=== PATIENT | female | born 1965 | race Caucasian/White ===

== ENCOUNTER 2018-05-22 08:45 | Inpatient (IN) ==
[2018-05-22] MEDS ORDERED: ONDANSETRON 4 MG/2 ML VIAL IV STA (09:54)
[2018-05-22] MEDS ORDERED: KETOROLAC 30 MG/1 ML VIAL IV STA (09:54)
[2018-05-22] MEDS ORDERED: SODIUM CHLORIDE 0.9% 1,000 ML IV STA (09:54)
[2018-05-22 10:30] LABS: Basophils # 0.1 10*3/uL (0.0-0.2); Basophils % 0.6 % (0.0-0.8); Eosinophils # 0.3 10*3/uL (0.0-0.87); Eosinophils % 4.2 % (0.00-10.9); Hematocrit 38.2 VOL% (35.7-47.0); Hemoglobin 12.7 GM/DL (12.0-16.0); Immature Granulocytes % 0.3 %; Immature Granulocytes Absolute 0.02 #; Lymphocytes # 3.2 10*3/uL (1.4-4.0); Lymphocytes % 40.2 % (21.3-54.2); Mean Corpuscular HGB Conc 33.2 GM/DL (32-36); Mean Corpuscular Hemoglobin 30 PG (27-34); Mean Corpuscular Volume 90.5 FL (87-102); Mean Platelet Volume 11.4 FL (9.6-12.0); Monocytes # 0.5 10*3/uL (0.11-0.8); Monocytes % 6.9 % (1.7-12.7); Neutrophils # 3.8 10*3/uL (1.4-7.4); Neutrophils % 47.8 % (38.7-73.9); Platelet Count 259 T/CUMM (130-400); Red Blood Count 4.22 MC/CUMM (3.8-5.5); Red Cell Distribution Width 12.5 % (9.3-17.3); White Blood Count 7.9 T/CUMM (4-12)
[2018-05-22 10:38] LABS: Alanine Aminotransferase 22 U/L (13-56); Albumin 3.1 G/DL (3.4-5.0); Alkaline Phosphatase 108 U/L (45-117); Amylase 41 U/L (25-115); Aspartate Amino Transferase 16 U/L (0-37); Bilirubin,Total < 0.39 MG/DL (0.2-1.0); Blood Urea Nitrogen 16 MG/DL (7-18); Calcium 8.7 MG/DL (8.5-10.1); Glucose 122 MG/DL (74-106); Potassium 2.9 MMOL/L (3.5-5.1); Sodium 143 MMOL/L (136-145)
[2018-05-22 10:57] LABS: Apearance,Urine CLEAR (Clear); Bacteria,Urine Occasional /HPF (Few); Bilirubin,Urine Negative (Negative); Blood, Urine Negative (Negative); Glucose,Urine (UA) Negative (Negative); Ketones,Urine Negative (Negative); Nitrite,Urine Negative (Negative); Protein,Urine Negative; RBC,Urine <1 /HPF (0-4); Squamous Epithelial Cell,Urine Occasional /HPF (0-10); Urine Color Straw (Yellow); Urine Specific Gravity 1.004 (1.001-1.035); Urine Urobilinogen < 2.0 EU/DL (0.2-1.0); WBC,Urine 2 /HPF (0-6)
[2018-05-22] MEDS ORDERED: PROMETHAZINE 25 MG TABLET PO PRN (12:27)
[2018-05-22] MEDS ORDERED: ONDANSETRON 4 MG/2 ML VIAL IV PRN (12:27)
[2018-05-22] MEDS ORDERED: ENOXAPARIN 80 MG/0.8 ML SYRINGE SUBCUT STA (12:27)
[2018-05-22] MEDS: POTASSIUM CHLORIDE RIDER 10 MEQ in PREMIX 1 EACH IV SCH ×2 (13:25→16:11)
[2018-05-22] MEDS ORDERED: MAGNESIUM SULF RIDER 2 GM in PREMIX 1 EACH IV PRN (14:08)
[2018-05-22 14:48] LABS: Troponin I 1.27 NG/ML (0.00-0.045)
[2018-05-22] MEDS: MORPHINE 4 MG/1 ML VIAL IV PRN ×2 (16:12→19:55)
[2018-05-22] MEDS ORDERED: TICAGRELOR 90 MG TABLET PO ONE (16:34)
[2018-05-22] MEDS: NITROGLYCERIN 2% OINT 1 INCH/GM PACK TOP SCH (18:26)
[2018-05-22 18:44] LABS: CKMB % 11.1 %
[2018-05-22 18:48] LABS: Troponin I 2.35 NG/ML (0.00-0.045)
[2018-05-22] MEDS ORDERED: ALUM/MAG/SIMETH/LIDO VISC 1:1 30 ML BOTTLE PO ONE (19:00)
[2018-05-22] MEDS: AMITRIPTYLINE 50 MG TABLET PO SCH (20:52)
[2018-05-22] MEDS: DOCUSATE SODIUM 100 MG CAPSULE PO SCH (20:52)
[2018-05-22] MEDS: TEMAZEPAM 15 MG CAPSULE PO SCH (20:52)
[2018-05-22 22:37] LABS: CKMB % 11.4 %
[2018-05-22 22:40] LABS: Troponin I 4.57 NG/ML (0.00-0.045)
[2018-05-23] MEDS: NITROGLYCERIN 2% OINT 1 INCH/GM PACK TOP SCH ×3 (01:53→12:16)
[2018-05-23] MEDS: MORPHINE 4 MG/1 ML VIAL IV PRN (04:09)
[2018-05-23 05:08] LABS: Basophils # 0.1 10*3/uL (0.0-0.2); Basophils % 0.9 % (0.0-0.8); Eosinophils # 0.3 10*3/uL (0.0-0.87); Eosinophils % 4.6 % (0.00-10.9); Hematocrit 35.8 VOL% (35.7-47.0); Hemoglobin 11.5 GM/DL (12.0-16.0); Immature Granulocytes % 0.3 %; Immature Granulocytes Absolute 0.02 #; Lymphocytes % 34.4 % (21.3-54.2); Mean Corpuscular HGB Conc 32.1 GM/DL (32-36); Mean Corpuscular Hemoglobin 29 PG (27-34); Mean Corpuscular Volume 91.3 FL (87-102); Mean Platelet Volume 11.5 FL (9.6-12.0); Monocytes # 0.5 10*3/uL (0.11-0.8); Monocytes % 8.3 % (1.7-12.7); Neutrophils % 51.5 % (38.7-73.9); Platelet Count 241 T/CUMM (130-400); Red Blood Count 3.92 MC/CUMM (3.8-5.5); Red Cell Distribution Width 12.7 % (9.3-17.3); White Blood Count 5.9 T/CUMM (4-12)
[2018-05-23 05:21] LABS: PT Patient Result 10.2 SECS
[2018-05-23 05:41] LABS: Calcium 8.2 MG/DL (8.5-10.1); Osmolality,Calculated 285.8 MOS/KG (273-304); Potassium 3.4 MMOL/L (3.5-5.1)
[2018-05-23 05:42] LABS: Risk Ratio 3.07; VLDL CHOLESTEROL 23.6 MG/DL
[2018-05-23 05:47] LABS: Troponin I 6.88 NG/ML (0.00-0.045)
[2018-05-23] MEDS: POTASSIUM CHLORIDE RIDER 10 MEQ in PREMIX 1 EACH IV PRN ×2 (06:12→08:12)
[2018-05-23] MEDS ORDERED: DIAZEPAM 5 MG TABLET PO ONE (06:30)
[2018-05-23] MEDS ORDERED: diphenhydrAMINE CAP 25 MG CAPSULE PO ONE (06:30)
[2018-05-23] MEDS ORDERED: HEPARIN/NACL 0.9% 2 UNITS/ML 1,000 ML IV ONE (08:07)
[2018-05-23] MEDS: ASPIRIN EC 325 MG TABLET PO SCH (08:10)
[2018-05-23] MEDS: TICAGRELOR 90 MG TABLET PO SCH ×2 (08:11→21:54)
[2018-05-23] MEDS: PANTOPRAZOLE 40 MG TABLET PO SCH (08:12)
[2018-05-23] MEDS: buPROPion SR 150 MG TABLET PO SCH (08:12)
[2018-05-23] MEDS: FLUoxetine 20 MG CAPSULE PO SCH (08:12)
[2018-05-23] MEDS: PRAVASTATIN 20 MG TABLET PO SCH (08:12)
[2018-05-23] MEDS: TOPIRAMATE 100 MG TABLET PO SCH (08:12)
[2018-05-23] MEDS: SODIUM CHLORIDE 0.45% 1,000 ML IV SCH ×2 (08:13→17:00)
[2018-05-23] MEDS: DOCUSATE SODIUM 100 MG CAPSULE PO SCH ×2 (08:17→21:54)
[2018-05-23] MEDS ORDERED: MIDAZOLAM 2 MG/2 ML VIAL ONE (08:31)
[2018-05-23] MEDS ORDERED: LIDOCAINE 1%/EPI INJ 20 ML VIAL ONE (08:31)
[2018-05-23] MEDS ORDERED: fentaNYL 100 MCG/2 ML VIAL ONE (08:31)
[2018-05-23] MEDS ORDERED: NIFEdipine 10 MG CAPSULE PO ONE (08:54)
[2018-05-23] MEDS ORDERED: PROPRANOLOL 40 MG TABLET PO SCH (09:00)
[2018-05-23] MEDS ORDERED: MELOXICAM 7.5 MG TABLET PO SCH (09:00)
[2018-05-23] MEDS: ACETAMINOPHEN 325 MG TABLET PO PRN (11:38)
[2018-05-23] MEDS ORDERED: ISOSORBIDE MONONITRATE 30 MG TABLET PO SCH (16:00)
[2018-05-23 16:50] LABS: CKMB % 8.2 %
[2018-05-23 16:51] LABS: Troponin I 5.4 NG/ML (0.00-0.045)
[2018-05-23] MEDS ORDERED: POTASSIUM CHLORIDE 20 MEQ TABLET PO ONE (19:41)
[2018-05-23] MEDS: TEMAZEPAM 15 MG CAPSULE PO SCH (21:54)
[2018-05-23] MEDS: AMITRIPTYLINE 50 MG TABLET PO SCH (21:54)
[2018-05-24 04:43] LABS: Basophils % 0.4 % (0.0-0.8); Eosinophils # 0.3 10*3/uL (0.0-0.87); Eosinophils % 4.3 % (0.00-10.9); Hematocrit 35.4 VOL% (35.7-47.0); Hemoglobin 11.4 GM/DL (12.0-16.0); Immature Granulocytes % 0.1 %; Immature Granulocytes Absolute 0.01 #; Lymphocytes # 2.6 10*3/uL (1.4-4.0); Lymphocytes % 38.5 % (21.3-54.2); Mean Corpuscular HGB Conc 32.2 GM/DL (32-36); Mean Corpuscular Hemoglobin 29 PG (27-34); Mean Corpuscular Volume 90.8 FL (87-102); Mean Platelet Volume 11.7 FL (9.6-12.0); Monocytes # 0.6 10*3/uL (0.11-0.8); Monocytes % 8.8 % (1.7-12.7); Neutrophils # 3.2 10*3/uL (1.4-7.4); Neutrophils % 47.9 % (38.7-73.9); Platelet Count 254 T/CUMM (130-400); Red Cell Distribution Width 12.8 % (9.3-17.3); White Blood Count 6.7 T/CUMM (4-12)
[2018-05-24 05:06] LABS: Calcium 8.7 MG/DL (8.5-10.1)
[2018-05-24 05:08] LABS: CKMB % 6.3 %
[2018-05-24 05:09] LABS: Troponin I 4.04 NG/ML (0.00-0.045)
[2018-05-24 07:07] LABS: CKMB % 7.5 %; Troponin I 3.46 NG/ML (0.00-0.045)
[2018-05-24] MEDS ORDERED: MEPERIDINE 25 MG/1 ML VIAL IV ONE (10:08)
[2018-05-24] MEDS ORDERED: PROMETHAZINE INJ 12.5 MG in SODIUM CHLORIDE 0.9% 50 ML IV ONE (10:08)
[2018-05-24] MEDS: FLUoxetine 20 MG CAPSULE PO SCH (10:20)
[2018-05-24] MEDS: TICAGRELOR 90 MG TABLET PO SCH ×2 (10:20→21:26)
[2018-05-24] MEDS: PROPRANOLOL 20 MG TABLET PO SCH (10:20)
[2018-05-24] MEDS: ASPIRIN EC 325 MG TABLET PO SCH (10:20)
[2018-05-24] MEDS: PRAVASTATIN 20 MG TABLET PO SCH (10:20)
[2018-05-24] MEDS: PANTOPRAZOLE 40 MG TABLET PO SCH (10:20)
[2018-05-24] MEDS: TOPIRAMATE 100 MG TABLET PO SCH (10:20)
[2018-05-24] MEDS: buPROPion SR 150 MG TABLET PO SCH (10:20)
[2018-05-24] MEDS: DOCUSATE SODIUM 100 MG CAPSULE PO SCH ×2 (10:20→21:26)
[2018-05-24] MEDS: ACETAMINOPHEN 325 MG TABLET PO PRN (17:01)
[2018-05-24] MEDS ORDERED: MAGNESIUM HYDROXIDE SUSP 30 ML UDCUP PO ONE (17:30)
[2018-05-24] MEDS ORDERED: MAGNESIUM HYDROXIDE SUSP 30 ML UDCUP PO PRN (17:30)
[2018-05-24] MEDS: SODIUM CHLORIDE 0.45% 1,000 ML IV SCH (18:30)
[2018-05-24] MEDS: metroNIDAZOLE INJ 250 MG in IV BAG 1 EACH IV SCH (19:01)
[2018-05-24] MEDS: AMITRIPTYLINE 50 MG TABLET PO SCH (21:26)
[2018-05-24] MEDS: TEMAZEPAM 15 MG CAPSULE PO SCH (21:26)
[2018-05-25] MEDS: metroNIDAZOLE INJ 250 MG in IV BAG 1 EACH IV SCH ×3 (02:30→18:32)
[2018-05-25 04:44] LABS: Basophils % 0.7 % (0.0-0.8); Eosinophils # 0.3 10*3/uL (0.0-0.87); Eosinophils % 5.4 % (0.00-10.9); Hemoglobin 11.1 GM/DL (12.0-16.0); Immature Granulocytes % 0.2 %; Immature Granulocytes Absolute 0.01 #; Lymphocytes # 2.2 10*3/uL (1.4-4.0); Lymphocytes % 36.2 % (21.3-54.2); Mean Corpuscular HGB Conc 31.7 GM/DL (32-36); Mean Corpuscular Hemoglobin 29 PG (27-34); Mean Corpuscular Volume 92.6 FL (87-102); Mean Platelet Volume 11.7 FL (9.6-12.0); Monocytes # 0.4 10*3/uL (0.11-0.8); Neutrophils % 50.5 % (38.7-73.9); Platelet Count 233 T/CUMM (130-400); Red Blood Count 3.78 MC/CUMM (3.8-5.5); Red Cell Distribution Width 12.9 % (9.3-17.3)
[2018-05-25 05:25] LABS: Albumin 2.6 G/DL (3.4-5.0); Bilirubin,Total 0.4 MG/DL (0.2-1.0); Calcium 8.2 MG/DL (8.5-10.1); Osmolality,Calculated 288.8 MOS/KG (273-304); Potassium 3.7 MMOL/L (3.5-5.1); Total Protein 6.1 G/DL (6.4-8.3)
[2018-05-25] MEDS: SODIUM CHLORIDE 0.45% 1,000 ML IV SCH ×2 (09:15→21:10)
[2018-05-25] MEDS: buPROPion SR 150 MG TABLET PO SCH (09:31)
[2018-05-25] MEDS: DOCUSATE SODIUM 100 MG CAPSULE PO SCH (09:31)
[2018-05-25] MEDS: ASPIRIN EC 325 MG TABLET PO SCH (09:32)
[2018-05-25] MEDS: PANTOPRAZOLE 40 MG TABLET PO SCH (09:32)
[2018-05-25] MEDS: PRAVASTATIN 20 MG TABLET PO SCH (09:32)
[2018-05-25] MEDS: TOPIRAMATE 100 MG TABLET PO SCH (09:32)
[2018-05-25] MEDS: PROPRANOLOL 20 MG TABLET PO SCH (09:32)
[2018-05-25] MEDS: TICAGRELOR 90 MG TABLET PO SCH ×2 (09:32→21:06)
[2018-05-25] MEDS: FLUoxetine 20 MG CAPSULE PO SCH (09:32)
[2018-05-25] MEDS ORDERED: BISACODYL 5 MG TABLET PO PRN (14:30)
[2018-05-25] MEDS: traMADol 50 MG TABLET PO PRN ×2 (14:47→20:25)
[2018-05-25] MEDS: TEMAZEPAM 15 MG CAPSULE PO SCH (21:06)
[2018-05-25] MEDS: AMITRIPTYLINE 50 MG TABLET PO SCH (21:06)
[2018-05-26 04:15] LABS: Basophils # 0.1 10*3/uL (0.0-0.2); Basophils % 0.7 % (0.0-0.8); Eosinophils # 0.4 10*3/uL (0.0-0.87); Eosinophils % 5.7 % (0.00-10.9); Hemoglobin 12.5 GM/DL (12.0-16.0); Immature Granulocytes % 0.3 %; Immature Granulocytes Absolute 0.02 #; Lymphocytes # 2.2 10*3/uL (1.4-4.0); Lymphocytes % 32.5 % (21.3-54.2); Mean Corpuscular HGB Conc 32.1 GM/DL (32-36); Mean Corpuscular Hemoglobin 30 PG (27-34); Mean Corpuscular Volume 93.1 FL (87-102); Mean Platelet Volume 11.8 FL (9.6-12.0); Monocytes # 0.5 10*3/uL (0.11-0.8); Monocytes % 7.4 % (1.7-12.7); Neutrophils # 3.7 10*3/uL (1.4-7.4); Neutrophils % 53.4 % (38.7-73.9); Platelet Count 273 T/CUMM (130-400); Red Blood Count 4.19 MC/CUMM (3.8-5.5); Red Cell Distribution Width 12.9 % (9.3-17.3); White Blood Count 6.9 T/CUMM (4-12)
[2018-05-26 04:40] LABS: Blood Urea Nitrogen 14 MG/DL (7-18); Calcium 8.6 MG/DL (8.5-10.1); Glucose 108 MG/DL (74-106); Osmolality,Calculated 287.8 MOS/KG (273-304); Potassium 3.5 MMOL/L (3.5-5.1); Sodium 144 MMOL/L (136-145)
[2018-05-26] MEDS: traMADol 50 MG TABLET PO PRN ×2 (07:19→13:07)
[2018-05-26] MEDS: PANTOPRAZOLE 40 MG TABLET PO SCH (08:45)
[2018-05-26] MEDS: FLUoxetine 20 MG CAPSULE PO SCH (08:45)
[2018-05-26] MEDS: TICAGRELOR 90 MG TABLET PO SCH (08:46)
[2018-05-26] MEDS: ASPIRIN EC 325 MG TABLET PO SCH (08:47)
[2018-05-26] MEDS: buPROPion SR 150 MG TABLET PO SCH (08:47)
[2018-05-26] MEDS: PROPRANOLOL 20 MG TABLET PO SCH (08:47)
[2018-05-26] MEDS: PRAVASTATIN 20 MG TABLET PO SCH (08:47)
[2018-05-26] MEDS: TOPIRAMATE 100 MG TABLET PO SCH (08:47)
[2018-05-26] MEDS ORDERED: POLYETHYLENE GLYCOL POWDER 17 GM PACK PO SCH (09:00)
[2018-05-26] MEDS ORDERED: POTASSIUM CHLORIDE 20 MEQ TABLET PO ONE (13:44)
[2018-05-26] MEDS: SODIUM CHLORIDE 0.45% 1,000 ML IV SCH (14:22)
[2018-05-26 17:31] VITALS: BP 109/55
== END 2018-05-26 18:00 | disposition home or self-care (01) | DRG 282 ==
LOC: N.ED 08:45 → N.EDINP 12:27 → N.TELES 13:54
PROVIDERS: ADMIT Internal Medicine; ATTEND Internal Medicine
PROC: CLCCHCL (ICD-10-PCS; 2018-05-23 09:15)

== ENCOUNTER 2018-07-31 23:08 | Inpatient (IN) ==
[2018-08-01] MEDS ORDERED: SODIUM CHLORIDE 0.9% 1,000 ML IV STA (00:45)
[2018-08-01 01:03] LABS: Basophils # 0.1 10*3/uL (0.0-0.2); Basophils % 0.5 % (0.0-0.8); Eosinophils # 0.4 10*3/uL (0.0-0.87); Eosinophils % 4.1 % (0.00-10.9); Hematocrit 38.9 VOL% (35.7-47.0); Hemoglobin 12.3 GM/DL (12.0-16.0); Immature Granulocytes % 0.4 %; Immature Granulocytes Absolute 0.04 #; Lymphocytes # 2.9 10*3/uL (1.4-4.0); Lymphocytes % 32.1 % (21.3-54.2); Mean Corpuscular HGB Conc 31.6 GM/DL (32-36); Mean Corpuscular Hemoglobin 29 PG (27-34); Mean Corpuscular Volume 91.1 FL (87-102); Mean Platelet Volume 11.9 FL (9.6-12.0); Monocytes # 0.9 10*3/uL (0.11-0.8); Monocytes % 9.7 % (1.7-12.7); Neutrophils # 4.9 10*3/uL (1.4-7.4); Neutrophils % 53.2 % (38.7-73.9); Platelet Count 273 T/CUMM (130-400); Red Blood Count 4.27 MC/CUMM (3.8-5.5); Red Cell Distribution Width 13.3 % (9.3-17.3); White Blood Count 9.1 T/CUMM (4-12)
[2018-08-01] MEDS ORDERED: LEVOFLOXACIN INJ 750 MG in PREMIX 1 EACH IV STA (01:15)
[2018-08-01] MEDS ORDERED: ALBUTEROL 1.25 MG/3 ML NEB RESP TX STA (01:16)
[2018-08-01] MEDS ORDERED: ACETAMINOPHEN 500 MG TABLET PO STA (01:16)
[2018-08-01 01:34] LABS: Alanine Aminotransferase 30 U/L (13-56); Albumin 2.8 G/DL (3.4-5.0); Alkaline Phosphatase 121 U/L (45-117); Aspartate Amino Transferase 16 U/L (0-37); Bilirubin,Total < 0.39 MG/DL (0.2-1.0); Blood Urea Nitrogen 12 MG/DL (7-18); Calcium 8.2 MG/DL (8.5-10.1); Glucose 104 MG/DL (74-106); Osmolality,Calculated 289.6 MOS/KG (273-304); Potassium 3.5 MMOL/L (3.5-5.1); Sodium 146 MMOL/L (136-145)
[2018-08-01] MEDS: ACETAMINOPHEN 325 MG TABLET PO PRN ×2 (10:19→21:23)
[2018-08-01] MEDS: DOCUSATE SODIUM 100 MG CAPSULE PO SCH ×2 (10:20→21:22)
[2018-08-01] MEDS: PANTOPRAZOLE 40 MG TABLET PO SCH (10:20)
[2018-08-01] MEDS ORDERED: POTASSIUM CHLORIDE 20 MEQ TABLET PO ONE (13:09)
[2018-08-01] MEDS ORDERED: KETOROLAC 15 MG/1 ML VIAL IV ONE (13:09)
[2018-08-01] MEDS ORDERED: TICAGRELOR 90 MG TABLET PO SCH (13:30)
[2018-08-01] MEDS: SODIUM CHLORIDE 0.45% 1,000 ML IV SCH (15:06)
[2018-08-01] MEDS: methylPREDNISolone SOD SUC 40 MG/1 ML VIAL IV SCH (15:07)
[2018-08-01] MEDS: PROPRANOLOL 40 MG TABLET PO SCH ×2 (15:11→21:21)
[2018-08-01] MEDS: FLUoxetine 20 MG CAPSULE PO SCH (15:12)
[2018-08-01] MEDS: buPROPion SR 150 MG TABLET PO SCH ×3 (15:13→21:26)
[2018-08-01] MEDS: MONTELUKAST 10 MG TABLET PO SCH (15:14)
[2018-08-01] MEDS: POLYETHYLENE GLYCOL POWDER 17 GM PACK PO SCH (15:14)
[2018-08-01] MEDS: FLUTICASONE 50 MCG NASAL SPRAY 16 GM BOTTLE BOTH NARES SCH (15:14)
[2018-08-01] MEDS: cefTRIAXone 1,000 MG in SYRINGE 1 EACH IV SCH (15:24)
[2018-08-01] MEDS: AZITHROMYCIN INJ 500 MG in SODIUM CHLORIDE 0.9% 250 ML IV SCH (15:28)
[2018-08-01] MEDS: ALBUTEROL/IPRATROPIUM 3 ML NEB RESP TX SCH (19:30)
[2018-08-01] MEDS: BUDESONIDE 0.25 MG/2 ML NEB RESP TX SCH (19:30)
[2018-08-01] MEDS ORDERED: AMITRIPTYLINE 50 MG TABLET PO SCH (21:00)
[2018-08-01] MEDS: TOPIRAMATE 100 MG TABLET PO SCH (21:22)
[2018-08-01] MEDS: TEMAZEPAM 15 MG CAPSULE PO SCH (21:22)
[2018-08-01] MEDS: AMITRIPTYLINE 50 MG TABLET PO SCH (21:26)
[2018-08-02] MEDS: ALBUTEROL/IPRATROPIUM 3 ML NEB RESP TX SCH ×4 (02:08→19:46)
[2018-08-02] MEDS: methylPREDNISolone SOD SUC 40 MG/1 ML VIAL IV SCH ×2 (02:26→13:16)
[2018-08-02 05:24] LABS: Basophils % 0.1 % (0.0-0.8); Hematocrit 41.4 VOL% (35.7-47.0); Hemoglobin 12.8 GM/DL (12.0-16.0); Immature Granulocytes % 0.5 %; Immature Granulocytes Absolute 0.04 #; Lymphocytes # 1.2 10*3/uL (1.4-4.0); Mean Corpuscular HGB Conc 30.9 GM/DL (32-36); Mean Corpuscular Hemoglobin 28 PG (27-34); Mean Corpuscular Volume 91.6 FL (87-102); Mean Platelet Volume 12.3 FL (9.6-12.0); Monocytes # 0.2 10*3/uL (0.11-0.8); Monocytes % 2.1 % (1.7-12.7); Neutrophils # 7.5 10*3/uL (1.4-7.4); Neutrophils % 84.3 % (38.7-73.9); Platelet Count 269 T/CUMM (130-400); Red Blood Count 4.52 MC/CUMM (3.8-5.5); Red Cell Distribution Width 13.2 % (9.3-17.3); White Blood Count 8.9 T/CUMM (4-12)
[2018-08-02 05:45] LABS: Albumin 2.7 G/DL (3.4-5.0); Bilirubin,Total 0.6 MG/DL (0.2-1.0); Calcium 8.8 MG/DL (8.5-10.1); Osmolality,Calculated 283.1 MOS/KG (273-304); Potassium 4.6 MMOL/L (3.5-5.1); Total Protein 6.9 G/DL (6.4-8.3)
[2018-08-02] MEDS: SODIUM CHLORIDE 0.45% 1,000 ML IV SCH ×2 (06:32→23:13)
[2018-08-02] MEDS: BUDESONIDE 0.25 MG/2 ML NEB RESP TX SCH ×2 (07:30→19:46)
[2018-08-02] MEDS: FLUTICASONE 50 MCG NASAL SPRAY 16 GM BOTTLE BOTH NARES SCH (08:40)
[2018-08-02] MEDS: POLYETHYLENE GLYCOL POWDER 17 GM PACK PO SCH (08:40)
[2018-08-02] MEDS: buPROPion SR 150 MG TABLET PO SCH ×2 (08:41→21:17)
[2018-08-02] MEDS: DOCUSATE SODIUM 100 MG CAPSULE PO SCH ×2 (08:41→21:17)
[2018-08-02] MEDS: FLUoxetine 20 MG CAPSULE PO SCH (08:41)
[2018-08-02] MEDS: MONTELUKAST 10 MG TABLET PO SCH (08:42)
[2018-08-02] MEDS: PANTOPRAZOLE 40 MG TABLET PO SCH (08:42)
[2018-08-02] MEDS: PROPRANOLOL 40 MG TABLET PO SCH ×2 (08:42→21:17)
[2018-08-02] MEDS: cefTRIAXone 1,000 MG in SYRINGE 1 EACH IV SCH (13:18)
[2018-08-02] MEDS: AZITHROMYCIN INJ 500 MG in SODIUM CHLORIDE 0.9% 250 ML IV SCH (13:23)
[2018-08-02] MEDS: ASPIRIN 325 MG TABLET PO SCH (14:36)
[2018-08-02] MEDS: IBUPROFEN 600 MG TABLET PO PRN (18:05)
[2018-08-02] MEDS: ONDANSETRON 4 MG/2 ML VIAL IV PRN (18:08)
[2018-08-02] MEDS: TOPIRAMATE 100 MG TABLET PO SCH (21:17)
[2018-08-02] MEDS: AMITRIPTYLINE 50 MG TABLET PO SCH (21:17)
[2018-08-02] MEDS: TEMAZEPAM 15 MG CAPSULE PO SCH (21:17)
[2018-08-03] MEDS: ALBUTEROL/IPRATROPIUM 3 ML NEB RESP TX SCH ×5 (02:19→23:58)
[2018-08-03] MEDS: methylPREDNISolone SOD SUC 40 MG/1 ML VIAL IV SCH ×3 (02:35→14:57)
[2018-08-03] MEDS: SODIUM CHLORIDE 0.45% 1,000 ML IV SCH ×2 (06:59→18:41)
[2018-08-03] MEDS: BUDESONIDE 0.25 MG/2 ML NEB RESP TX SCH ×2 (07:15→19:08)
[2018-08-03] MEDS: MONTELUKAST 10 MG TABLET PO SCH (09:33)
[2018-08-03] MEDS: buPROPion SR 150 MG TABLET PO SCH ×2 (09:34→21:09)
[2018-08-03] MEDS: PROPRANOLOL 40 MG TABLET PO SCH ×2 (09:34→21:09)
[2018-08-03] MEDS: FLUoxetine 20 MG CAPSULE PO SCH (09:34)
[2018-08-03] MEDS: PANTOPRAZOLE 40 MG TABLET PO SCH (09:34)
[2018-08-03] MEDS: ASPIRIN 325 MG TABLET PO SCH (09:35)
[2018-08-03] MEDS: FLUTICASONE 50 MCG NASAL SPRAY 16 GM BOTTLE BOTH NARES SCH (09:35)
[2018-08-03] MEDS: POLYETHYLENE GLYCOL POWDER 17 GM PACK PO SCH (09:35)
[2018-08-03] MEDS: DOCUSATE SODIUM 100 MG CAPSULE PO SCH ×2 (09:38→21:09)
[2018-08-03] MEDS ORDERED: BISACODYL 5 MG TABLET PO ONE (10:00)
[2018-08-03] MEDS ORDERED: POLYETHYLENE GLYCOL POWDER 255 GM BOTTLE PO ONE (12:00)
[2018-08-03 14:46] LABS: Hematocrit 35.8 VOL% (35.7-47.0); Hemoglobin 11.3 GM/DL (12.0-16.0); Immature Granulocytes % 0.8 %; Lymphocytes % 16.4 % (21.3-54.2); Mean Corpuscular HGB Conc 31.6 GM/DL (32-36); Mean Corpuscular Hemoglobin 29 PG (27-34); Mean Corpuscular Volume 90.2 FL (87-102); Mean Platelet Volume 11.7 FL (9.6-12.0); Monocytes # 0.6 10*3/uL (0.11-0.8); Monocytes % 5.1 % (1.7-12.7); Neutrophils # 9.7 10*3/uL (1.4-7.4); Neutrophils % 77.7 % (38.7-73.9); Platelet Count 267 T/CUMM (130-400); Red Blood Count 3.97 MC/CUMM (3.8-5.5); Red Cell Distribution Width 13.2 % (9.3-17.3); White Blood Count 12.4 T/CUMM (4-12)
[2018-08-03] MEDS: cefTRIAXone 1,000 MG in SYRINGE 1 EACH IV SCH (14:47)
[2018-08-03] MEDS: AZITHROMYCIN INJ 500 MG in SODIUM CHLORIDE 0.9% 250 ML IV SCH (14:48)
[2018-08-03] MEDS: ONDANSETRON 4 MG/2 ML VIAL IV PRN (14:52)
[2018-08-03 15:05] LABS: Calcium 8.4 MG/DL (8.5-10.1); Osmolality,Calculated 287.7 MOS/KG (273-304); Potassium 3.8 MMOL/L (3.5-5.1)
[2018-08-03] MEDS: TOPIRAMATE 100 MG TABLET PO SCH (21:09)
[2018-08-03] MEDS: TEMAZEPAM 15 MG CAPSULE PO SCH (21:09)
[2018-08-03] MEDS: AMITRIPTYLINE 50 MG TABLET PO SCH (21:09)
[2018-08-04] MEDS: methylPREDNISolone SOD SUC 40 MG/1 ML VIAL IV SCH ×2 (01:31→18:41)
[2018-08-04 06:14] LABS: Calcium 8.9 MG/DL (8.5-10.1); Osmolality,Calculated 287.7 MOS/KG (273-304); Potassium 3.3 MMOL/L (3.5-5.1)
[2018-08-04] MEDS: BUDESONIDE 0.25 MG/2 ML NEB RESP TX SCH ×2 (07:13→20:00)
[2018-08-04] MEDS: ALBUTEROL/IPRATROPIUM 3 ML NEB RESP TX SCH ×3 (07:13→20:00)
[2018-08-04] MEDS: SODIUM CHLORIDE 0.45% 1,000 ML IV SCH ×2 (08:05→21:25)
[2018-08-04] MEDS ORDERED: PHENYLEPHRINE 1 MG/10 ML SYRINGE IV ONE (09:00)
[2018-08-04] MEDS ORDERED: PROPOFOL 200 MG/20 ML VIAL IV ONE (09:00)
[2018-08-04] MEDS ORDERED: GLYCOPYRROLATE 0.4 MG/2 ML VIAL ONE (09:00)
[2018-08-04] MEDS ORDERED: POTASSIUM CHLORIDE 20 MEQ TABLET PO ONE (09:37)
[2018-08-04 09:55] LABS: PT Patient Result 10.5 SECS
[2018-08-04] MEDS: ASPIRIN 325 MG TABLET PO SCH (14:59)
[2018-08-04] MEDS: FLUTICASONE 50 MCG NASAL SPRAY 16 GM BOTTLE BOTH NARES SCH (15:00)
[2018-08-04] MEDS: PROPRANOLOL 40 MG TABLET PO SCH ×2 (15:00→21:29)
[2018-08-04] MEDS: POLYETHYLENE GLYCOL POWDER 17 GM PACK PO SCH (15:00)
[2018-08-04] MEDS: DOCUSATE SODIUM 100 MG CAPSULE PO SCH ×2 (15:00→21:29)
[2018-08-04] MEDS: MONTELUKAST 10 MG TABLET PO SCH (15:01)
[2018-08-04] MEDS: FLUoxetine 20 MG CAPSULE PO SCH (15:01)
[2018-08-04] MEDS: PANTOPRAZOLE 40 MG TABLET PO SCH (15:01)
[2018-08-04] MEDS: buPROPion SR 150 MG TABLET PO SCH ×2 (15:01→21:31)
[2018-08-04] MEDS: IBUPROFEN 600 MG TABLET PO PRN (16:38)
[2018-08-04] MEDS ORDERED: SIMETHICONE CHEW 80 MG TABLET PO PRN (18:25)
[2018-08-04] MEDS: cefTRIAXone 1,000 MG in SYRINGE 1 EACH IV SCH (18:34)
[2018-08-04] MEDS: AZITHROMYCIN INJ 500 MG in SODIUM CHLORIDE 0.9% 250 ML IV SCH (18:38)
[2018-08-04] MEDS: TOPIRAMATE 100 MG TABLET PO SCH (21:29)
[2018-08-04] MEDS: AMITRIPTYLINE 50 MG TABLET PO SCH (21:29)
[2018-08-04] MEDS: TEMAZEPAM 15 MG CAPSULE PO SCH (21:29)
[2018-08-05] MEDS: ALBUTEROL/IPRATROPIUM 3 ML NEB RESP TX SCH ×2 (00:44→07:42)
[2018-08-05] MEDS: methylPREDNISolone SOD SUC 40 MG/1 ML VIAL IV SCH (01:57)
[2018-08-05] MEDS: BUDESONIDE 0.25 MG/2 ML NEB RESP TX SCH (07:42)
[2018-08-05] MEDS: SODIUM CHLORIDE 0.45% 1,000 ML IV SCH ×2 (09:25→11:55)
[2018-08-05] MEDS: POLYETHYLENE GLYCOL POWDER 17 GM PACK PO SCH (09:26)
[2018-08-05] MEDS: DOCUSATE SODIUM 100 MG CAPSULE PO SCH (09:27)
[2018-08-05] MEDS: ASPIRIN 325 MG TABLET PO SCH (09:27)
[2018-08-05] MEDS: PROPRANOLOL 40 MG TABLET PO SCH (09:27)
[2018-08-05] MEDS: buPROPion SR 150 MG TABLET PO SCH (09:27)
[2018-08-05] MEDS: PANTOPRAZOLE 40 MG TABLET PO SCH (09:27)
[2018-08-05] MEDS: MONTELUKAST 10 MG TABLET PO SCH (09:27)
[2018-08-05] MEDS: FLUoxetine 20 MG CAPSULE PO SCH (09:27)
[2018-08-05] MEDS: FLUTICASONE 50 MCG NASAL SPRAY 16 GM BOTTLE BOTH NARES SCH (09:28)
[2018-08-05 11:27] VITALS: BP 103/50
== END 2018-08-05 13:15 | disposition home or self-care (01) | DRG 202 ==
LOC: N.ED 23:08 → N.EDINP 08-01 01:31 → N.5E 08-01 02:25
PROVIDERS: ADMIT Internal Medicine; ATTEND Internal Medicine

== ENCOUNTER 2022-08-23 15:37 | Inpatient (IN) ==
[2022-08-23] MEDS ORDERED: ONDANSETRON 4 MG/2 ML VIAL IV STA (16:04)
[2022-08-23] MEDS ORDERED: MORPHINE 2 MG/1 ML SYRINGE IV STA ×2 (16:04→17:43)
[2022-08-23] MEDS ORDERED: SODIUM CHLORIDE 0.9% 1,000 ML IV STA (16:04)
[2022-08-23 16:28] LABS: Basophils % 0.3 % (0.0-0.8); Eosinophils # 0.1 10*3/uL (0.0-0.87); Eosinophils % 1.4 % (0.00-10.9); Hematocrit 44.3 VOL% (35.7-47.0); Hemoglobin 14.3 GM/DL (12.0-16.0); Immature Granulocytes % 0.7 %; Immature Granulocytes Absolute 0.07 #; Lymphocytes # 0.7 10*3/uL (1.4-4.0); Lymphocytes % 7.4 % (21.3-54.2); Mean Corpuscular HGB Conc 32.3 GM/DL (32-36); Mean Platelet Volume 11.8 FL (9.6-12.0); Monocytes # 0.7 10*3/uL (0.11-0.8); Monocytes % 7.3 % (1.7-12.7); Neutrophils % 82.9 % (38.7-73.9); Platelet Count 248 T/CUMM (130-400); Red Blood Count 4.87 MC/CUMM (3.8-5.5); Red Cell Distribution Width 13.7 % (9.3-17.3); White Blood Count 9.7 T/CUMM (4-12)
[2022-08-23 16:58] LABS: Albumin 3.5 G/DL (3.4-5.0); Bilirubin,Total 0.7 MG/DL (0.20-1.00); Calcium 8.8 MG/DL (8.5-10.1); Osmolality,Calculated 279.4 MOS/KG (273-304); Potassium 3.5 MMOL/L (3.5-5.1); Total Protein 7.9 G/DL (6.4-8.2)
[2022-08-23] MEDS ORDERED: TEMAZEPAM 15 MG CAPSULE PO PRN (17:41)
[2022-08-23] MEDS: SODIUM CHLORIDE 0.9% 1,000 ML IV SCH (18:49)
[2022-08-23] MEDS: AMITRIPTYLINE 50 MG TABLET PO SCH (22:10)
[2022-08-23] MEDS: amLODIPine 2.5 MG TABLET PO SCH (22:10)
[2022-08-23] MEDS: ONDANSETRON 4 MG/2 ML VIAL IV PRN (23:32)
[2022-08-24] MEDS: SODIUM CHLORIDE 0.9% 1,000 ML IV SCH ×3 (02:58→21:52)
[2022-08-24 06:08] LABS: Basophils % 0.4 % (0.0-0.8); Eosinophils % 0.5 % (0.00-10.9); Hematocrit 40.4 VOL% (35.7-47.0); Hemoglobin 12.9 GM/DL (12.0-16.0); Immature Granulocytes % 0.4 %; Immature Granulocytes Absolute 0.03 #; Lymphocytes # 0.6 10*3/uL (1.4-4.0); Lymphocytes % 8.7 % (21.3-54.2); Mean Corpuscular HGB Conc 31.9 GM/DL (32-36); Mean Corpuscular Volume 93.1 FL (87-102); Mean Platelet Volume 12.1 FL (9.6-12.0); Monocytes # 1.1 10*3/uL (0.11-0.8); Monocytes % 15.1 % (1.7-12.7); Neutrophils % 74.9 % (38.7-73.9); Platelet Count 212 T/CUMM (130-400); Red Blood Count 4.34 MC/CUMM (3.8-5.5); White Blood Count 7.3 T/CUMM (4-12)
[2022-08-24 06:23] LABS: Calcium 8.7 MG/DL (8.5-10.1); Osmolality,Calculated 275.5 MOS/KG (273-304); Potassium 3.8 MMOL/L (3.5-5.1)
[2022-08-24] MEDS: ONDANSETRON 4 MG/2 ML VIAL IV PRN ×2 (08:00→23:48)
[2022-08-24] MEDS: PANTOPRAZOLE 40 MG VIAL IV SCH (08:09)
[2022-08-24] MEDS: FLUoxetine 20 MG CAPSULE PO SCH (08:09)
[2022-08-24] MEDS: PROPRANOLOL 40 MG TABLET PO SCH (08:09)
[2022-08-24] MEDS ORDERED: BUTALBITAL/ACETAMIN/CAFFEINE 50-325-40 MG TABLET PO PRN (11:42)
[2022-08-24] MEDS ORDERED: BUTALBITAL/ACETAMIN/CAFFEINE 50-325-40 MG TABLET PO ONE (11:43)
[2022-08-24] MEDS: MONTELUKAST 10 MG TABLET PO SCH (12:21)
[2022-08-24] MEDS: KETOROLAC 15 MG/1 ML VIAL IV SCH ×3 (12:22→23:49)
[2022-08-24] MEDS: ASPIRIN EC 81 MG TABLET PO SCH (12:22)
[2022-08-24] MEDS: methylPREDNISolone SOD SUC 40 MG/1 ML VIAL IV SCH ×2 (12:23→21:52)
[2022-08-24] MEDS: FLUTICASONE 50 MCG NASAL SPRAY 16 GM BOTTLE BOTH NARES SCH (12:24)
[2022-08-24] MEDS: AZITHROMYCIN INJ 500 MG in SODIUM CHLORIDE 0.9% 250 ML IV SCH (12:25)
[2022-08-24] MEDS: BUDESONIDE 0.25 MG/2 ML NEB RESP TX SCH ×2 (14:05→19:03)
[2022-08-24] MEDS: ALBUTEROL/IPRATROPIUM 3 ML NEB RESP TX SCH ×2 (14:05→19:03)
[2022-08-24] MEDS: BENZONATATE 100 MG CAPSULE PO SCH ×2 (15:24→21:52)
[2022-08-24] MEDS: amLODIPine 2.5 MG TABLET PO SCH (21:52)
[2022-08-24] MEDS: AMITRIPTYLINE 50 MG TABLET PO SCH (21:52)
[2022-08-25] MEDS: ALBUTEROL/IPRATROPIUM 3 ML NEB RESP TX SCH ×4 (00:39→21:45)
[2022-08-25] MEDS: methylPREDNISolone SOD SUC 40 MG/1 ML VIAL IV SCH ×3 (04:29→22:51)
[2022-08-25 06:03] LABS: Basophils % 0.2 % (0.0-0.8); Hematocrit 37.5 VOL% (35.7-47.0); Hemoglobin 11.8 GM/DL (12.0-16.0); Immature Granulocytes % 1.1 %; Immature Granulocytes Absolute 0.07 #; Lymphocytes # 0.5 10*3/uL (1.4-4.0); Lymphocytes % 7.9 % (21.3-54.2); Mean Corpuscular HGB Conc 31.5 GM/DL (32-36); Mean Corpuscular Volume 92.6 FL (87-102); Mean Platelet Volume 12.1 FL (9.6-12.0); Monocytes # 0.1 10*3/uL (0.11-0.8); Monocytes % 1.4 % (1.7-12.7); Neutrophils % 89.4 % (38.7-73.9); Platelet Count 187 T/CUMM (130-400); Red Blood Count 4.05 MC/CUMM (3.8-5.5); Red Cell Distribution Width 13.8 % (9.3-17.3); White Blood Count 6.6 T/CUMM (4-12)
[2022-08-25] MEDS: ONDANSETRON 4 MG/2 ML VIAL IV PRN ×2 (06:08→12:56)
[2022-08-25] MEDS: KETOROLAC 15 MG/1 ML VIAL IV SCH ×4 (06:08→23:00)
[2022-08-25] MEDS: SODIUM CHLORIDE 0.9% 1,000 ML IV SCH ×3 (06:08→18:45)
[2022-08-25 06:24] LABS: Calcium 8.6 MG/DL (8.5-10.1); Osmolality,Calculated 283.3 MOS/KG (273-304); Potassium 3.6 MMOL/L (3.5-5.1)
[2022-08-25] MEDS: BUDESONIDE 0.25 MG/2 ML NEB RESP TX SCH ×2 (07:29→21:45)
[2022-08-25] MEDS: ASPIRIN EC 81 MG TABLET PO SCH (09:09)
[2022-08-25] MEDS: BENZONATATE 100 MG CAPSULE PO SCH ×3 (09:09→22:50)
[2022-08-25] MEDS: FLUTICASONE 50 MCG NASAL SPRAY 16 GM BOTTLE BOTH NARES SCH (09:09)
[2022-08-25] MEDS: MONTELUKAST 10 MG TABLET PO SCH (09:09)
[2022-08-25] MEDS: PANTOPRAZOLE 40 MG VIAL IV SCH (09:09)
[2022-08-25] MEDS: PROPRANOLOL 40 MG TABLET PO SCH (09:09)
[2022-08-25] MEDS: FLUoxetine 20 MG CAPSULE PO SCH (09:09)
[2022-08-25] MEDS: AZITHROMYCIN INJ 500 MG in SODIUM CHLORIDE 0.9% 250 ML IV SCH (12:06)
[2022-08-25] MEDS ORDERED: PHENOL 1.4% THROAT SPRAY 177 ML BOTTLE PO PRN (14:40)
[2022-08-25] MEDS: TEMAZEPAM 15 MG CAPSULE PO SCH (22:50)
[2022-08-25] MEDS: amLODIPine 2.5 MG TABLET PO SCH (22:50)
[2022-08-25] MEDS: AMITRIPTYLINE 50 MG TABLET PO SCH (22:50)
[2022-08-26] MEDS: ALBUTEROL/IPRATROPIUM 3 ML NEB RESP TX SCH ×4 (01:29→20:21)
[2022-08-26] MEDS: SODIUM CHLORIDE 0.9% 1,000 ML IV SCH ×3 (02:13→18:39)
[2022-08-26] MEDS: methylPREDNISolone SOD SUC 40 MG/1 ML VIAL IV SCH ×3 (04:15→20:34)
[2022-08-26 06:08] LABS: Calcium 9.1 MG/DL (8.5-10.1); Potassium 4.3 MMOL/L (3.5-5.1)
[2022-08-26] MEDS: BUDESONIDE 0.25 MG/2 ML NEB RESP TX SCH ×2 (07:26→20:22)
[2022-08-26] MEDS: ASPIRIN EC 81 MG TABLET PO SCH (08:07)
[2022-08-26] MEDS: PROPRANOLOL 40 MG TABLET PO SCH (08:07)
[2022-08-26] MEDS: PANTOPRAZOLE 40 MG VIAL IV SCH (08:08)
[2022-08-26] MEDS: KETOROLAC 15 MG/1 ML VIAL IV SCH ×3 (08:08→18:15)
[2022-08-26] MEDS: MONTELUKAST 10 MG TABLET PO SCH (08:08)
[2022-08-26] MEDS: BENZONATATE 100 MG CAPSULE PO SCH ×4 (08:08→20:34)
[2022-08-26] MEDS: FLUoxetine 20 MG CAPSULE PO SCH (08:41)
[2022-08-26] MEDS: FLUTICASONE 50 MCG NASAL SPRAY 16 GM BOTTLE BOTH NARES SCH (08:41)
[2022-08-26] MEDS: AZITHROMYCIN INJ 500 MG in SODIUM CHLORIDE 0.9% 250 ML IV SCH (12:38)
[2022-08-26] MEDS: MEROPENEM 500 MG in SODIUM CHLORIDE 0.9% 100 ML IV SCH (18:15)
[2022-08-26] MEDS: amLODIPine 2.5 MG TABLET PO SCH (20:34)
[2022-08-26] MEDS: AMITRIPTYLINE 50 MG TABLET PO SCH (20:34)
[2022-08-26] MEDS: TEMAZEPAM 15 MG CAPSULE PO SCH (20:34)
[2022-08-27] MEDS: ALBUTEROL/IPRATROPIUM 3 ML NEB RESP TX SCH ×4 (01:02→19:28)
[2022-08-27] MEDS: KETOROLAC 15 MG/1 ML VIAL IV SCH ×5 (01:04→23:38)
[2022-08-27] MEDS: SODIUM CHLORIDE 0.9% 1,000 ML IV SCH ×2 (01:06→16:30)
[2022-08-27] MEDS: MEROPENEM 500 MG in SODIUM CHLORIDE 0.9% 100 ML IV SCH ×5 (01:06→23:39)
[2022-08-27] MEDS: methylPREDNISolone SOD SUC 40 MG/1 ML VIAL IV SCH ×3 (05:41→20:31)
[2022-08-27] MEDS: BUDESONIDE 0.25 MG/2 ML NEB RESP TX SCH ×2 (07:20→19:28)
[2022-08-27] MEDS: BENZONATATE 100 MG CAPSULE PO SCH ×4 (08:41→20:31)
[2022-08-27] MEDS: FLUoxetine 20 MG CAPSULE PO SCH (08:42)
[2022-08-27] MEDS: PROPRANOLOL 40 MG TABLET PO SCH (08:42)
[2022-08-27] MEDS: ASPIRIN EC 81 MG TABLET PO SCH (08:42)
[2022-08-27] MEDS: MONTELUKAST 10 MG TABLET PO SCH (08:43)
[2022-08-27] MEDS: FLUTICASONE 50 MCG NASAL SPRAY 16 GM BOTTLE BOTH NARES SCH (08:43)
[2022-08-27] MEDS: PANTOPRAZOLE 40 MG VIAL IV SCH (08:45)
[2022-08-27] MEDS: AZITHROMYCIN INJ 500 MG in SODIUM CHLORIDE 0.9% 250 ML IV SCH (12:55)
[2022-08-27] MEDS ORDERED: FUROSEMIDE 40 MG/4 ML VIAL IV ONE (15:27)
[2022-08-27] MEDS ORDERED: BENZOCAINE/MENTHOL LOZENGE 18/BOX PO PRN (17:41)
[2022-08-27] MEDS: amLODIPine 2.5 MG TABLET PO SCH (20:31)
[2022-08-27] MEDS: TEMAZEPAM 15 MG CAPSULE PO SCH (20:31)
[2022-08-27] MEDS: AMITRIPTYLINE 50 MG TABLET PO SCH (20:31)
[2022-08-28] MEDS: ALBUTEROL/IPRATROPIUM 3 ML NEB RESP TX SCH ×4 (00:10→18:52)
[2022-08-28] MEDS: MEROPENEM 500 MG in SODIUM CHLORIDE 0.9% 100 ML IV SCH ×4 (05:20→23:37)
[2022-08-28] MEDS: methylPREDNISolone SOD SUC 40 MG/1 ML VIAL IV SCH ×3 (05:24→20:23)
[2022-08-28] MEDS: KETOROLAC 15 MG/1 ML VIAL IV SCH ×4 (05:24→23:37)
[2022-08-28 06:39] LABS: Albumin 2.7 G/DL (3.4-5.0); Bilirubin,Total 0.4 MG/DL (0.20-1.00); Calcium 8.9 MG/DL (8.5-10.1); Osmolality,Calculated 289.1 MOS/KG (273-304); Potassium 3.1 MMOL/L (3.5-5.1); Total Protein 6.2 G/DL (6.4-8.2)
[2022-08-28] MEDS ORDERED: MEPERIDINE 50 MG/1 ML VIAL IM ONE (07:00)
[2022-08-28] MEDS ORDERED: PROMETHAZINE 25 MG/1 ML VIAL IM ONE (07:00)
[2022-08-28] MEDS ORDERED: LIDOCAINE 2% VISCOUS 100 ML BOTTLE SWISH/SPIT ONE (07:30)
[2022-08-28] MEDS ORDERED: MIDAZOLAM 2 MG/2 ML VIAL IV ONE (07:30)
[2022-08-28] MEDS ORDERED: LIDOCAINE 1% 20 ML VIAL MISC INJ ONE (07:30)
[2022-08-28] MEDS ORDERED: LIDOCAINE 2% 20 ML VIAL RESP TX ONE (07:30)
[2022-08-28] MEDS: BUDESONIDE 0.25 MG/2 ML NEB RESP TX SCH ×2 (07:57→18:52)
[2022-08-28] MEDS: ASPIRIN EC 81 MG TABLET PO SCH (10:13)
[2022-08-28] MEDS: PROPRANOLOL 40 MG TABLET PO SCH (10:13)
[2022-08-28] MEDS: BENZONATATE 100 MG CAPSULE PO SCH ×4 (10:13→20:22)
[2022-08-28] MEDS: MONTELUKAST 10 MG TABLET PO SCH (10:13)
[2022-08-28] MEDS: PANTOPRAZOLE 40 MG VIAL IV SCH (10:14)
[2022-08-28] MEDS: FUROSEMIDE 40 MG/4 ML VIAL IV SCH (10:14)
[2022-08-28] MEDS: FLUTICASONE 50 MCG NASAL SPRAY 16 GM BOTTLE BOTH NARES SCH (11:04)
[2022-08-28] MEDS: FLUoxetine 20 MG CAPSULE PO SCH (11:04)
[2022-08-28] MEDS: AZITHROMYCIN INJ 500 MG in SODIUM CHLORIDE 0.9% 250 ML IV SCH (13:20)
[2022-08-28] MEDS: guaiFENesin 200 MG/10 ML UDCUP PO PRN ×2 (14:53→20:29)
[2022-08-28] MEDS ORDERED: POTASSIUM CHLORIDE 20 MEQ TABLET PO ONE (15:22)
[2022-08-28] MEDS: TEMAZEPAM 15 MG CAPSULE PO SCH (20:22)
[2022-08-28] MEDS: AMITRIPTYLINE 50 MG TABLET PO SCH (20:22)
[2022-08-28] MEDS: amLODIPine 2.5 MG TABLET PO SCH (20:22)
[2022-08-29] MEDS: ALBUTEROL/IPRATROPIUM 3 ML NEB RESP TX SCH ×4 (01:36→19:54)
[2022-08-29 05:31] LABS: Calcium 8.9 MG/DL (8.5-10.1); Osmolality,Calculated 290.1 MOS/KG (273-304); Potassium 3.1 MMOL/L (3.5-5.1)
[2022-08-29] MEDS: methylPREDNISolone SOD SUC 40 MG/1 ML VIAL IV SCH ×3 (05:56→20:46)
[2022-08-29] MEDS: KETOROLAC 15 MG/1 ML VIAL IV SCH (05:56)
[2022-08-29] MEDS: MEROPENEM 500 MG in SODIUM CHLORIDE 0.9% 100 ML IV SCH ×4 (05:57→23:08)
[2022-08-29] MEDS: BUDESONIDE 0.25 MG/2 ML NEB RESP TX SCH ×2 (06:44→19:54)
[2022-08-29] MEDS: POTASSIUM CHLORIDE 20 MEQ TABLET PO SCH (08:39)
[2022-08-29] MEDS: ASPIRIN EC 81 MG TABLET PO SCH (08:39)
[2022-08-29] MEDS: MONTELUKAST 10 MG TABLET PO SCH (08:39)
[2022-08-29] MEDS: PROPRANOLOL 40 MG TABLET PO SCH (08:40)
[2022-08-29] MEDS: BENZONATATE 100 MG CAPSULE PO SCH ×4 (08:40→20:46)
[2022-08-29] MEDS: FLUTICASONE 50 MCG NASAL SPRAY 16 GM BOTTLE BOTH NARES SCH (08:42)
[2022-08-29] MEDS: PANTOPRAZOLE 40 MG VIAL IV SCH (09:34)
[2022-08-29] MEDS: FUROSEMIDE 40 MG/4 ML VIAL IV SCH (09:35)
[2022-08-29] MEDS: FLUoxetine 20 MG CAPSULE PO SCH (10:08)
[2022-08-29] MEDS ORDERED: hydrALAZINE 20 MG/1 ML VIAL IV PRN (12:03)
[2022-08-29] MEDS: AZITHROMYCIN INJ 500 MG in SODIUM CHLORIDE 0.9% 250 ML IV SCH (12:40)
[2022-08-29] MEDS: ONDANSETRON 4 MG/2 ML VIAL IV PRN (13:07)
[2022-08-29] MEDS: amLODIPine 5 MG TABLET PO SCH (20:46)
[2022-08-29] MEDS: AMITRIPTYLINE 50 MG TABLET PO SCH (20:46)
[2022-08-29] MEDS: TEMAZEPAM 15 MG CAPSULE PO SCH (20:46)
[2022-08-30] MEDS: ALBUTEROL/IPRATROPIUM 3 ML NEB RESP TX SCH ×4 (00:32→18:40)
[2022-08-30] MEDS: methylPREDNISolone SOD SUC 40 MG/1 ML VIAL IV SCH ×3 (03:56→21:30)
[2022-08-30] MEDS: MEROPENEM 500 MG in SODIUM CHLORIDE 0.9% 100 ML IV SCH ×4 (04:00→23:11)
[2022-08-30 05:40] LABS: Calcium 8.3 MG/DL (8.5-10.1); Osmolality,Calculated 294.8 MOS/KG (273-304); Potassium 2.9 MMOL/L (3.5-5.1)
[2022-08-30] MEDS: BUDESONIDE 0.25 MG/2 ML NEB RESP TX SCH ×2 (07:01→18:40)
[2022-08-30] MEDS: MONTELUKAST 10 MG TABLET PO SCH (09:22)
[2022-08-30] MEDS: FLUoxetine 20 MG CAPSULE PO SCH (09:22)
[2022-08-30] MEDS: PROPRANOLOL 40 MG TABLET PO SCH (09:22)
[2022-08-30] MEDS: BENZONATATE 100 MG CAPSULE PO SCH ×4 (09:22→21:29)
[2022-08-30] MEDS: ASPIRIN EC 81 MG TABLET PO SCH (09:22)
[2022-08-30] MEDS: POTASSIUM CHLORIDE 20 MEQ TABLET PO SCH (09:23)
[2022-08-30] MEDS: FLUTICASONE 50 MCG NASAL SPRAY 16 GM BOTTLE BOTH NARES SCH (09:25)
[2022-08-30] MEDS: PANTOPRAZOLE 40 MG VIAL IV SCH (10:17)
[2022-08-30] MEDS: FUROSEMIDE 40 MG/4 ML VIAL IV SCH (10:25)
[2022-08-30] MEDS: POTASSIUM CHLORIDE 20 MEQ TABLET PO PRN ×2 (11:04→16:04)
[2022-08-30] MEDS ORDERED: MAGNESIUM SULF RIDER 2 GM/50 ML PREMIX IV PRN (11:36)
[2022-08-30] MEDS ORDERED: POTASSIUM CHLORIDE RIDER 10 MEQ/100 ML PREMIX IV PRN (11:36)
[2022-08-30] MEDS ORDERED: MAGNESIUM SULF RIDER 4 GM/100 ML PREMIX IV PRN (11:36)
[2022-08-30] MEDS: AZITHROMYCIN INJ 500 MG in SODIUM CHLORIDE 0.9% 250 ML IV SCH (12:01)
[2022-08-30] MEDS: INSULIN LISPRO 100 UNIT/ML SUBCUT SCH ×2 (18:59→21:40)
[2022-08-30] MEDS: TEMAZEPAM 15 MG CAPSULE PO SCH (21:29)
[2022-08-30] MEDS: amLODIPine 5 MG TABLET PO SCH (21:29)
[2022-08-30] MEDS: AMITRIPTYLINE 50 MG TABLET PO SCH (21:29)
[2022-08-31] MEDS: ALBUTEROL/IPRATROPIUM 3 ML NEB RESP TX SCH ×4 (00:15→19:32)
[2022-08-31] MEDS: MEROPENEM 500 MG in SODIUM CHLORIDE 0.9% 100 ML IV SCH ×3 (04:52→16:53)
[2022-08-31] MEDS: ONDANSETRON 4 MG/2 ML VIAL IV PRN (05:04)
[2022-08-31] MEDS: methylPREDNISolone SOD SUC 40 MG/1 ML VIAL IV SCH ×3 (05:05→22:01)
[2022-08-31 05:43] LABS: Basophils % 0.1 % (0.0-0.8); Hematocrit 39.1 VOL% (35.7-47.0); Hemoglobin 12.7 GM/DL (12.0-16.0); Immature Granulocytes % 0.8 %; Immature Granulocytes Absolute 0.07 #; Lymphocytes # 0.6 10*3/uL (1.4-4.0); Lymphocytes % 7.2 % (21.3-54.2); Mean Corpuscular HGB Conc 32.5 GM/DL (32-36); Mean Corpuscular Volume 88.7 FL (87-102); Mean Platelet Volume 12.8 FL (9.6-12.0); Monocytes # 0.3 10*3/uL (0.11-0.8); Monocytes % 3.3 % (1.7-12.7); Neutrophils % 88.6 % (38.7-73.9); Platelet Count 208 T/CUMM (130-400); Red Blood Count 4.41 MC/CUMM (3.8-5.5); Red Cell Distribution Width 13.2 % (9.3-17.3); White Blood Count 8.8 T/CUMM (4-12)
[2022-08-31 05:58] LABS: Albumin 2.7 G/DL (3.4-5.0); Bilirubin,Total 0.6 MG/DL (0.20-1.00); Calcium 8.6 MG/DL (8.5-10.1); Osmolality,Calculated 286.5 MOS/KG (273-304); Potassium 3.9 MMOL/L (3.5-5.1); Total Protein 6.1 G/DL (6.4-8.2)
[2022-08-31] MEDS: BUDESONIDE 0.25 MG/2 ML NEB RESP TX SCH ×2 (07:04→19:32)
[2022-08-31] MEDS: INSULIN LISPRO 100 UNIT/ML SUBCUT SCH ×4 (08:40→22:01)
[2022-08-31] MEDS: POTASSIUM CHLORIDE 20 MEQ TABLET PO SCH (09:48)
[2022-08-31] MEDS: PROPRANOLOL 40 MG TABLET PO SCH (09:48)
[2022-08-31] MEDS: BENZONATATE 100 MG CAPSULE PO SCH ×4 (09:48→22:01)
[2022-08-31] MEDS: FLUTICASONE 50 MCG NASAL SPRAY 16 GM BOTTLE BOTH NARES SCH (09:49)
[2022-08-31] MEDS: FLUoxetine 20 MG CAPSULE PO SCH (09:49)
[2022-08-31] MEDS: FUROSEMIDE 40 MG TABLET PO SCH (09:49)
[2022-08-31] MEDS: ASPIRIN EC 81 MG TABLET PO SCH (09:49)
[2022-08-31] MEDS: MONTELUKAST 10 MG TABLET PO SCH (09:49)
[2022-08-31] MEDS: PANTOPRAZOLE 40 MG VIAL IV SCH (11:02)
[2022-08-31] MEDS: AZITHROMYCIN INJ 500 MG in SODIUM CHLORIDE 0.9% 250 ML IV SCH (13:31)
[2022-08-31] MEDS: VALSARTAN 80 MG TABLET PO SCH (13:31)
[2022-08-31] MEDS: DOXYCYCLINE HYCLATE 100 MG CAPSULE PO SCH ×2 (14:58→22:01)
[2022-08-31] MEDS ORDERED: MYLANTA/LIDO VISC 2:1 300 ML BOTTLE SWISH/SPIT PRN (18:19)
[2022-08-31] MEDS: amLODIPine 5 MG TABLET PO SCH (22:01)
[2022-08-31] MEDS: AMITRIPTYLINE 50 MG TABLET PO SCH (22:01)
[2022-08-31] MEDS: TEMAZEPAM 15 MG CAPSULE PO SCH (22:01)
[2022-08-31] MEDS: NYSTATIN 500,000 UNIT/5 ML UDCUP SWISH/SWAL SCH (22:01)
[2022-08-31] MEDS: VANCOMYCIN INJ 1,500 MG in SODIUM CHLORIDE 0.9% 500 ML IV SCH (23:05)
[2022-09-01] MEDS: ALBUTEROL/IPRATROPIUM 3 ML NEB RESP TX SCH ×4 (00:18→19:07)
[2022-09-01] MEDS: MEROPENEM 500 MG in SODIUM CHLORIDE 0.9% 100 ML IV SCH ×3 (00:58→11:31)
[2022-09-01] MEDS: methylPREDNISolone SOD SUC 40 MG/1 ML VIAL IV SCH ×3 (04:00→23:03)
[2022-09-01 06:29] LABS: Risk Ratio 2.82; VLDL Cholesterol 27.2 MG/DL
[2022-09-01] MEDS: BUDESONIDE 0.25 MG/2 ML NEB RESP TX SCH ×2 (08:02→19:07)
[2022-09-01] MEDS: INSULIN LISPRO 100 UNIT/ML SUBCUT SCH ×4 (08:10→22:07)
[2022-09-01] MEDS: PANTOPRAZOLE 40 MG VIAL IV SCH (08:56)
[2022-09-01] MEDS: DOXYCYCLINE HYCLATE 100 MG CAPSULE PO SCH ×2 (09:34→20:40)
[2022-09-01] MEDS: VALSARTAN 80 MG TABLET PO SCH (09:34)
[2022-09-01] MEDS: NYSTATIN 500,000 UNIT/5 ML UDCUP SWISH/SWAL SCH ×4 (09:34→22:07)
[2022-09-01] MEDS: POTASSIUM CHLORIDE 20 MEQ TABLET PO SCH (09:35)
[2022-09-01] MEDS: FLUoxetine 20 MG CAPSULE PO SCH (09:35)
[2022-09-01] MEDS: MONTELUKAST 10 MG TABLET PO SCH (09:35)
[2022-09-01] MEDS: PROPRANOLOL 40 MG TABLET PO SCH (09:35)
[2022-09-01] MEDS: FLUTICASONE 50 MCG NASAL SPRAY 16 GM BOTTLE BOTH NARES SCH (09:35)
[2022-09-01] MEDS: ASPIRIN EC 81 MG TABLET PO SCH (09:35)
[2022-09-01] MEDS: FUROSEMIDE 40 MG TABLET PO SCH (09:35)
[2022-09-01] MEDS: BENZONATATE 100 MG CAPSULE PO SCH ×4 (09:35→20:40)
[2022-09-01] MEDS: VANCOMYCIN INJ 1,500 MG in SODIUM CHLORIDE 0.9% 500 ML IV SCH ×2 (09:37→20:41)
[2022-09-01] MEDS: FLUCONAZOLE INJ 200 MG/100 ML PREMIX IV SCH (15:12)
[2022-09-01] MEDS: TEMAZEPAM 15 MG CAPSULE PO SCH (20:40)
[2022-09-01] MEDS: AMITRIPTYLINE 50 MG TABLET PO SCH (20:40)
[2022-09-01] MEDS: amLODIPine 5 MG TABLET PO SCH (20:40)
[2022-09-02] MEDS: ALBUTEROL/IPRATROPIUM 3 ML NEB RESP TX SCH ×4 (00:16→19:32)
[2022-09-02] MEDS: methylPREDNISolone SOD SUC 40 MG/1 ML VIAL IV SCH ×3 (04:41→20:58)
[2022-09-02 05:37] LABS: Albumin 2.5 G/DL (3.4-5.0); Bilirubin,Total 0.5 MG/DL (0.20-1.00); Calcium 8.2 MG/DL (8.5-10.1); Osmolality,Calculated 285.3 MOS/KG (273-304); Potassium 3.7 MMOL/L (3.5-5.1); Total Protein 5.6 G/DL (6.4-8.2)
[2022-09-02] MEDS: BUDESONIDE 0.25 MG/2 ML NEB RESP TX SCH ×2 (07:41→19:32)
[2022-09-02] MEDS: ACETAMINOPHEN 325 MG TABLET PO PRN (08:16)
[2022-09-02] MEDS: MONTELUKAST 10 MG TABLET PO SCH (09:21)
[2022-09-02] MEDS: VALSARTAN 80 MG TABLET PO SCH (09:21)
[2022-09-02] MEDS: FLUoxetine 20 MG CAPSULE PO SCH (09:21)
[2022-09-02] MEDS: NYSTATIN 500,000 UNIT/5 ML UDCUP SWISH/SWAL SCH ×4 (09:23→21:42)
[2022-09-02] MEDS: ASPIRIN EC 81 MG TABLET PO SCH (09:23)
[2022-09-02] MEDS: POTASSIUM CHLORIDE 20 MEQ TABLET PO SCH (09:23)
[2022-09-02] MEDS: BENZONATATE 100 MG CAPSULE PO SCH ×4 (09:29→21:42)
[2022-09-02] MEDS: DOXYCYCLINE HYCLATE 100 MG CAPSULE PO SCH ×2 (09:29→21:43)
[2022-09-02] MEDS: PROPRANOLOL 40 MG TABLET PO SCH (09:31)
[2022-09-02] MEDS: FLUTICASONE 50 MCG NASAL SPRAY 16 GM BOTTLE BOTH NARES SCH (09:31)
[2022-09-02] MEDS: INSULIN LISPRO 100 UNIT/ML SUBCUT SCH ×4 (09:32→21:41)
[2022-09-02] MEDS: FUROSEMIDE 40 MG TABLET PO SCH (09:32)
[2022-09-02] MEDS: VANCOMYCIN INJ 1,500 MG in SODIUM CHLORIDE 0.9% 500 ML IV SCH ×2 (10:22→21:42)
[2022-09-02] MEDS: PANTOPRAZOLE 40 MG VIAL IV SCH (10:23)
[2022-09-02] MEDS: ONDANSETRON 4 MG/2 ML VIAL IV PRN (10:27)
[2022-09-02] MEDS: FLUCONAZOLE INJ 200 MG/100 ML PREMIX IV SCH (15:39)
[2022-09-02] MEDS: AMITRIPTYLINE 50 MG TABLET PO SCH (21:41)
[2022-09-02] MEDS: amLODIPine 5 MG TABLET PO SCH (21:42)
[2022-09-02] MEDS: TEMAZEPAM 15 MG CAPSULE PO PRN (21:43)
[2022-09-03] MEDS: ALBUTEROL/IPRATROPIUM 3 ML NEB RESP TX SCH ×4 (02:15→19:30)
[2022-09-03] MEDS: methylPREDNISolone SOD SUC 40 MG/1 ML VIAL IV SCH ×3 (04:52→21:41)
[2022-09-03] MEDS: BUDESONIDE 0.25 MG/2 ML NEB RESP TX SCH ×2 (07:56→19:30)
[2022-09-03] MEDS: PANTOPRAZOLE 40 MG VIAL IV SCH (09:22)
[2022-09-03] MEDS: ASPIRIN EC 81 MG TABLET PO SCH (09:31)
[2022-09-03] MEDS: VALSARTAN 80 MG TABLET PO SCH (09:32)
[2022-09-03] MEDS: DOXYCYCLINE HYCLATE 100 MG CAPSULE PO SCH ×2 (09:32→21:40)
[2022-09-03] MEDS: NYSTATIN 500,000 UNIT/5 ML UDCUP SWISH/SWAL SCH ×4 (09:32→21:40)
[2022-09-03] MEDS: MONTELUKAST 10 MG TABLET PO SCH (09:32)
[2022-09-03] MEDS: BENZONATATE 100 MG CAPSULE PO SCH ×4 (09:32→21:40)
[2022-09-03] MEDS: FLUoxetine 20 MG CAPSULE PO SCH (09:32)
[2022-09-03] MEDS: FUROSEMIDE 40 MG TABLET PO SCH (09:33)
[2022-09-03] MEDS: POTASSIUM CHLORIDE 20 MEQ TABLET PO SCH (09:33)
[2022-09-03] MEDS: FLUTICASONE 50 MCG NASAL SPRAY 16 GM BOTTLE BOTH NARES SCH (09:36)
[2022-09-03] MEDS: INSULIN LISPRO 100 UNIT/ML SUBCUT SCH ×4 (09:40→21:40)
[2022-09-03] MEDS: PROPRANOLOL 40 MG TABLET PO SCH (09:41)
[2022-09-03] MEDS: VANCOMYCIN INJ 1,500 MG in SODIUM CHLORIDE 0.9% 500 ML IV SCH ×2 (10:55→21:43)
[2022-09-03] MEDS: FLUCONAZOLE INJ 200 MG/100 ML PREMIX IV SCH (16:49)
[2022-09-03] MEDS: AMITRIPTYLINE 50 MG TABLET PO SCH (21:40)
[2022-09-03] MEDS: TEMAZEPAM 15 MG CAPSULE PO PRN (21:44)
[2022-09-04] MEDS: ALBUTEROL/IPRATROPIUM 3 ML NEB RESP TX SCH ×4 (01:10→19:47)
[2022-09-04] MEDS: methylPREDNISolone SOD SUC 40 MG/1 ML VIAL IV SCH ×2 (04:44→19:23)
[2022-09-04 05:58] LABS: Osmolality,Calculated 282.7 MOS/KG (273-304); Potassium 3.4 MMOL/L (3.5-5.1)
[2022-09-04] MEDS: BUDESONIDE 0.25 MG/2 ML NEB RESP TX SCH ×2 (07:10→19:47)
[2022-09-04] MEDS: ASPIRIN EC 81 MG TABLET PO SCH (09:21)
[2022-09-04] MEDS: FLUoxetine 20 MG CAPSULE PO SCH (09:21)
[2022-09-04] MEDS: MONTELUKAST 10 MG TABLET PO SCH (09:21)
[2022-09-04] MEDS: VALSARTAN 80 MG TABLET PO SCH (09:22)
[2022-09-04] MEDS: DOXYCYCLINE HYCLATE 100 MG CAPSULE PO SCH ×2 (09:23→17:21)
[2022-09-04] MEDS: BENZONATATE 100 MG CAPSULE PO SCH ×4 (09:23→20:54)
[2022-09-04] MEDS: NYSTATIN 500,000 UNIT/5 ML UDCUP SWISH/SWAL SCH ×4 (09:23→20:54)
[2022-09-04] MEDS: POTASSIUM CHLORIDE 20 MEQ TABLET PO SCH ×2 (09:23→20:54)
[2022-09-04] MEDS: VANCOMYCIN INJ 1,500 MG in SODIUM CHLORIDE 0.9% 500 ML IV SCH ×2 (09:25→20:55)
[2022-09-04] MEDS: FUROSEMIDE 40 MG TABLET PO SCH ×2 (09:48→10:18)
[2022-09-04] MEDS: FLUTICASONE 50 MCG NASAL SPRAY 16 GM BOTTLE BOTH NARES SCH ×2 (09:48→10:19)
[2022-09-04] MEDS: INSULIN LISPRO 100 UNIT/ML SUBCUT SCH ×5 (09:48→20:58)
[2022-09-04] MEDS: PROPRANOLOL 40 MG TABLET PO SCH ×2 (09:48→10:19)
[2022-09-04] MEDS: PANTOPRAZOLE 40 MG VIAL IV SCH (10:36)
[2022-09-04] MEDS: FLUCONAZOLE INJ 200 MG/100 ML PREMIX IV SCH (14:29)
[2022-09-04] MEDS: TEMAZEPAM 15 MG CAPSULE PO PRN (20:54)
[2022-09-04] MEDS: AMITRIPTYLINE 50 MG TABLET PO SCH (20:54)
[2022-09-05] MEDS: ALBUTEROL/IPRATROPIUM 3 ML NEB RESP TX SCH ×4 (00:35→19:35)
[2022-09-05] MEDS: methylPREDNISolone SOD SUC 40 MG/1 ML VIAL IV SCH ×2 (04:06→17:53)
[2022-09-05 04:49] LABS: Calcium 8.4 MG/DL (8.5-10.1); Osmolality,Calculated 286.5 MOS/KG (273-304); Potassium 3.7 MMOL/L (3.5-5.1)
[2022-09-05] MEDS: BUDESONIDE 0.25 MG/2 ML NEB RESP TX SCH ×2 (07:10→19:35)
[2022-09-05] MEDS: INSULIN LISPRO 100 UNIT/ML SUBCUT SCH ×4 (08:58→20:35)
[2022-09-05] MEDS: PANTOPRAZOLE 40 MG VIAL IV SCH (09:19)
[2022-09-05] MEDS: FUROSEMIDE 40 MG TABLET PO SCH (09:54)
[2022-09-05] MEDS: PROPRANOLOL 40 MG TABLET PO SCH (09:54)
[2022-09-05] MEDS: ASPIRIN EC 81 MG TABLET PO SCH (09:54)
[2022-09-05] MEDS: POTASSIUM CHLORIDE 20 MEQ TABLET PO SCH ×2 (09:54→20:29)
[2022-09-05] MEDS: DOXYCYCLINE HYCLATE 100 MG CAPSULE PO SCH ×2 (09:54→16:40)
[2022-09-05] MEDS: VALSARTAN 80 MG TABLET PO SCH (09:54)
[2022-09-05] MEDS: NYSTATIN 500,000 UNIT/5 ML UDCUP SWISH/SWAL SCH ×4 (09:54→20:29)
[2022-09-05] MEDS: BENZONATATE 100 MG CAPSULE PO SCH ×4 (09:55→20:29)
[2022-09-05] MEDS: amLODIPine 5 MG TABLET PO SCH (09:55)
[2022-09-05] MEDS: FLUTICASONE 50 MCG NASAL SPRAY 16 GM BOTTLE BOTH NARES SCH (09:55)
[2022-09-05] MEDS: MONTELUKAST 10 MG TABLET PO SCH (09:55)
[2022-09-05] MEDS: VANCOMYCIN INJ 1,500 MG in SODIUM CHLORIDE 0.9% 500 ML IV SCH ×2 (09:55→20:30)
[2022-09-05] MEDS: FLUoxetine 20 MG CAPSULE PO SCH (12:19)
[2022-09-05] MEDS: FLUCONAZOLE INJ 200 MG/100 ML PREMIX IV SCH (16:40)
[2022-09-05] MEDS: AMITRIPTYLINE 50 MG TABLET PO SCH (20:29)
[2022-09-05] MEDS: TEMAZEPAM 15 MG CAPSULE PO PRN (20:29)
[2022-09-06] MEDS: ALBUTEROL/IPRATROPIUM 3 ML NEB RESP TX SCH ×4 (02:10→18:49)
[2022-09-06] MEDS: ACETAMINOPHEN 325 MG TABLET PO PRN (04:48)
[2022-09-06] MEDS: methylPREDNISolone SOD SUC 40 MG/1 ML VIAL IV SCH ×2 (04:48→17:05)
[2022-09-06 06:32] LABS: Calcium 8.1 MG/DL (8.5-10.1); Potassium 3.9 MMOL/L (3.5-5.1)
[2022-09-06] MEDS: BUDESONIDE 0.25 MG/2 ML NEB RESP TX SCH ×2 (07:08→18:55)
[2022-09-06] MEDS: INSULIN LISPRO 100 UNIT/ML SUBCUT SCH ×4 (08:06→20:30)
[2022-09-06] MEDS: DOXYCYCLINE HYCLATE 100 MG CAPSULE PO SCH ×2 (09:48→16:21)
[2022-09-06] MEDS: ASPIRIN EC 81 MG TABLET PO SCH (09:49)
[2022-09-06] MEDS: FLUoxetine 20 MG CAPSULE PO SCH (09:49)
[2022-09-06] MEDS: NYSTATIN 500,000 UNIT/5 ML UDCUP SWISH/SWAL SCH ×5 (09:49→20:25)
[2022-09-06] MEDS: PROPRANOLOL 40 MG TABLET PO SCH (09:49)
[2022-09-06] MEDS: VALSARTAN 80 MG TABLET PO SCH (09:49)
[2022-09-06] MEDS: amLODIPine 5 MG TABLET PO SCH (09:49)
[2022-09-06] MEDS: BENZONATATE 100 MG CAPSULE PO SCH ×5 (09:49→20:25)
[2022-09-06] MEDS: FUROSEMIDE 40 MG TABLET PO SCH (09:49)
[2022-09-06] MEDS: POTASSIUM CHLORIDE 20 MEQ TABLET PO SCH ×2 (09:49→20:25)
[2022-09-06] MEDS: PANTOPRAZOLE 40 MG VIAL IV SCH (09:50)
[2022-09-06] MEDS: VANCOMYCIN INJ 1,500 MG in SODIUM CHLORIDE 0.9% 500 ML IV SCH ×2 (09:50→20:26)
[2022-09-06] MEDS: MONTELUKAST 10 MG TABLET PO SCH (09:52)
[2022-09-06] MEDS: FLUTICASONE 50 MCG NASAL SPRAY 16 GM BOTTLE BOTH NARES SCH (09:54)
[2022-09-06] MEDS: FLUCONAZOLE INJ 200 MG/100 ML PREMIX IV SCH (14:08)
[2022-09-06] MEDS: TEMAZEPAM 15 MG CAPSULE PO PRN (20:25)
[2022-09-06] MEDS: AMITRIPTYLINE 50 MG TABLET PO SCH (20:25)
[2022-09-07] MEDS ORDERED: ALBUTEROL/IPRATROPIUM 3 ML NEB RESP TX ONE (00:07)
[2022-09-07] MEDS: ALBUTEROL/IPRATROPIUM 3 ML NEB RESP TX SCH ×3 (00:08→13:30)
[2022-09-07] MEDS: methylPREDNISolone SOD SUC 40 MG/1 ML VIAL IV SCH (04:30)
[2022-09-07 05:58] LABS: Calcium 8.4 MG/DL (8.5-10.1); Osmolality,Calculated 284.7 MOS/KG (273-304); Potassium 4.3 MMOL/L (3.5-5.1)
[2022-09-07] MEDS: BUDESONIDE 0.25 MG/2 ML NEB RESP TX SCH (07:10)
[2022-09-07] MEDS: PANTOPRAZOLE 40 MG VIAL IV SCH (09:28)
[2022-09-07] MEDS: PROPRANOLOL 40 MG TABLET PO SCH (10:06)
[2022-09-07] MEDS: DOXYCYCLINE HYCLATE 100 MG CAPSULE PO SCH (10:06)
[2022-09-07] MEDS: FUROSEMIDE 40 MG TABLET PO SCH (10:06)
[2022-09-07] MEDS: VALSARTAN 80 MG TABLET PO SCH (10:06)
[2022-09-07] MEDS: FLUoxetine 20 MG CAPSULE PO SCH (10:06)
[2022-09-07] MEDS: BENZONATATE 100 MG CAPSULE PO SCH ×2 (10:07→12:01)
[2022-09-07] MEDS: ASPIRIN EC 81 MG TABLET PO SCH (10:07)
[2022-09-07] MEDS: MONTELUKAST 10 MG TABLET PO SCH (10:07)
[2022-09-07] MEDS: amLODIPine 5 MG TABLET PO SCH (10:07)
[2022-09-07] MEDS: NYSTATIN 500,000 UNIT/5 ML UDCUP SWISH/SWAL SCH ×2 (10:08→13:30)
[2022-09-07] MEDS: POTASSIUM CHLORIDE 20 MEQ TABLET PO SCH (10:08)
[2022-09-07] MEDS: VANCOMYCIN INJ 1,500 MG in SODIUM CHLORIDE 0.9% 500 ML IV SCH (10:16)
[2022-09-07] MEDS: FLUTICASONE 50 MCG NASAL SPRAY 16 GM BOTTLE BOTH NARES SCH (10:16)
[2022-09-07] MEDS: INSULIN LISPRO 100 UNIT/ML SUBCUT SCH ×2 (12:07→13:14)
[2022-09-07] MEDS: FLUCONAZOLE INJ 200 MG/100 ML PREMIX IV SCH (16:16)
[2022-09-07 17:24] VITALS: BP 163/73
== END 2022-09-07 17:23 | disposition home health service (06) | DRG 178 ==
LOC: N.ED 15:37 → N.EDINP 15:37 → N.TELEN 18:01
PROVIDERS: ADMIT Internal Medicine; ATTEND Internal Medicine